=== PATIENT | female | born 1935 | race Caucasian/White ===

== ENCOUNTER 2017-01-02 14:28 | Inpatient (IN) | payer OTHER, MEDICARE ==
[~2017-01-02] VITALS: Ht 157.5 cm; Wt 46.3 kg
[2017-01-02 14:37] VITALS: BP_SYST 150
[2017-01-02] MEDS ORDERED: NACL 0.9% 1,000 ML IV ONE ×2 (15:00→17:00)
[2017-01-02] MEDS ORDERED: METO25TA3 PO (15:11)
[2017-01-02] MEDS ORDERED: PRO2.5 PO (15:11)
[2017-01-02] MEDS ORDERED: ESTR0.623 PO (15:11)
[2017-01-02] MEDS ORDERED: ROSU10TA PO (15:11)
[2017-01-02 15:13] LABS: BASOPHILS # (AUTO) 0.1 K/uL (0.0-0.2); BASOPHILS % (AUTO) 1.2 % (0.0-2.0); EOSINOPHILS # (AUTO) 0.2 K/uL (0.0-0.4); EOSINOPHILS % (AUTO) 1.8 % (0.0-4.0); HEMATOCRIT 41.3 % (36-48); HEMOGLOBIN 13.3 g/dL (12.0-16.0); LYMPHOCYTES # (AUTO) 3.4 K/uL (1.0-5.5); LYMPHOCYTES % (AUTO) 37.8 % (20.5-51.5); MEAN CORPUSCULAR HEMOGLOBIN 31 pg (27-31); MEAN CORPUSCULAR HGB CONC 32 % (32-36); MEAN CORPUSCULAR VOLUME 95 fL (79.0-98.0); MONOCYTES % (AUTO) 11.1 % (1.7-9.3); NEUTROPHILS # (AUTO) 4.2 K/uL (1.8-7.7); NEUTROPHILS % (AUTO) 48.1 % (40.0-70.0); PLATELET COUNT (AUTO) 387 K/uL (130-430); RED BLOOD CELL COUNT(AUTO) 4.36 MIL/uL (4.2-6.2); RED CELL DISTRIBUTION WIDTH 12.1 % (9.0-15.0); WHITE BLOOD COUNT (AUTO) 8.9 K/uL (4.8-10.8)
[2017-01-02 15:27] LABS: ANION GAP 8 (5-15); CALCIUM 9.8 mg/dL (8.4-11.0); CHLORIDE 106 mmol/L (98-107); CREATININE 1.02 mg/dL (0.55-1.30); GLUCOSE 104 mg/dL (70-99); POTASSIUM 4.4 mmol/L (3.5-5.1); SODIUM SERUM 138 mmol/L (136-145); UREA NITROGEN, BLOOD 14 mg/dL (8-21)
[2017-01-02 15:43] LABS: ALANINE AMINOTRANSFERASE 27 U/L (12-78); ALBUMIN 3.3 g/dL (3.4-4.8); ASPARTATE AMINOTRANSFERASE 24 U/L (10-37); TOTAL BILIRUBIN 0.4 mg/dL (0.0-1.0)
[2017-01-02 16:08] LABS: BILIRUBIN,URINE NEGATIVE (NEGATIVE); CLARITY/URINE CLEAR (CLEAR); COLOR,URINE YELLOW (YELLOW); GLUCOSE,URINE NEGATIVE (NEGATIVE); KETONES,URINE NEGATIVE (NEGATIVE); LEUKOCYTE ESTERASE ,URINE 1+ (NEGATIVE); NITRITE, URINE NEGATIVE (NEGATIVE); PH,URINE 6.5 (5.0-8.0); PROTEIN URINE NEGATIVE (NEGATIVE); UROBILINOGEN,URINE 0.2 (0.2-1.0)
[2017-01-02 16:14] LABS: BLOOD, URINE TRACE (NEGATIVE)
[2017-01-02 16:28] LABS: BACTERIA,URINE MODERATE /HPF (None Seen)
[2017-01-02 16:29] LABS: HYALINE CASTS, URINE 0-1 /LPF (None Seen)
[2017-01-02 16:30] LABS: MUCUS,URINE 1+ /LPF (None Seen)
[2017-01-02] MEDS ORDERED: cefTRIAXone 1 GM VIAL ONE (16:58)
[2017-01-02] MEDS ORDERED: metroNIDAZOLE 500 MG TABLET PO ONE (17:00)
[2017-01-02] MEDS ORDERED: cefTRIAXone 1 GM in D5W 50 ML IV ONE (17:00)
[2017-01-02] MEDS: NACL 0.9% 1,000 ML IV SCH (17:03)
[2017-01-02] MEDS ORDERED: MORPHINE 2 MG/ML INJ. SYRINGE IVP PRN (17:15)
[2017-01-02] MEDS ORDERED: SIMETHICONE 80 MG TAB.CHEW PO PRN (17:15)
[2017-01-02] MEDS ORDERED: ZOLPIDEM TARTRATE 5 MG TABLET PO PRN (17:15)
[2017-01-02] MEDS ORDERED: POTASSIUM CHLORIDE 20 MEQ TAB.PRT.SR PO PRN (17:15)
[2017-01-02] MEDS ORDERED: ONDANSETRON HCL 4 MG/2 ML VIAL IVP PRN (17:15)
[2017-01-02] MEDS ORDERED: ACETAMINOPHEN 325 MG TABLET PO PRN (17:15)
[2017-01-02] MEDS ORDERED: BISACODYL 10 MG/SUPPOSITORY RC PRN (17:15)
[2017-01-02] MEDS ORDERED: LORazepam 2 MG/ML VIAL IVP PRN (17:15)
[2017-01-02 17:43] VITALS: BP_SYST 140
[2017-01-02 18:19] LABS: FREE T4 (FREE THYROXINE) 0.8 ng/dL (0.6-1.6); PHOSPHORUS 5.6 mg/dL (2.7-4.5); THYROID STIMULATING HORMONE 2.32 uIu/mL (0.34-4.82)
[2017-01-02 19:00] VITALS: BP_SYST 119
[2017-01-02 20:00] VITALS: BP_SYST 119
[2017-01-02] MEDS: DOCUSATE SODIUM 100 MG CAPSULE PO SCH (21:00)
[2017-01-02] MEDS ORDERED: SACCHAROMYCES BOULARDII 250 MG CAPSULE (FLORASTOR) PO SCH (21:00)
[2017-01-02] MEDS: metroNIDAZOLE 500 MG TABLET PO SCH (21:39)
[2017-01-02 23:51] VITALS: BP_SYST 122
[2017-01-03 03:58] VITALS: BP_SYST 104
[2017-01-03] MEDS: NACL 0.9% 1,000 ML IV SCH ×2 (05:43→20:50)
[2017-01-03 06:44] LABS: CHOLESTEROL 128 mg/dL (<200); HDL CHOLESTEROL 55 mg/dL (>55); LDL CHOLESTEROL 73 mg/dL (<100); TRIGLYCERIDES 71 mg/dL (30-150)
[2017-01-03 08:14] VITALS: BP_SYST 113
[2017-01-03] MEDS: metroNIDAZOLE 500 MG TABLET PO SCH ×3 (08:49→20:52)
[2017-01-03] MEDS: MULTIVITS,CA,MINERALS/IRON/FA 1 TABLET PO SCH (08:50)
[2017-01-03] MEDS: LACTOBACILLUS RHAMNOSUS GG 1 CAP CAPSULE PO SCH ×2 (08:50→20:50)
[2017-01-03] MEDS: DOCUSATE SODIUM 100 MG CAPSULE PO SCH ×2 (08:51→20:52)
[2017-01-03] MEDS ORDERED: cefTRIAXone 1 GM in D5W 50 ML IV SCH (09:00)
[2017-01-03 11:36] VITALS: BP_SYST 109
[2017-01-03] MEDS ORDERED: cefTRIAXone 1 GM in D5W 50 ML IV ONE (14:00)
[2017-01-03 15:42] VITALS: BP_SYST 108
[2017-01-03 20:00] VITALS: BP_SYST 116
[2017-01-04 00:23] VITALS: BP_SYST 139
[2017-01-04 06:02] VITALS: BP_SYST 126
[2017-01-04 06:26] LABS: BASOPHILS # (AUTO) 0.1 K/uL (0.0-0.2); EOSINOPHILS # (AUTO) 0.3 K/uL (0.0-0.4); EOSINOPHILS % (AUTO) 3.9 % (0.0-4.0); LYMPHOCYTES # (AUTO) 2.4 K/uL (1.0-5.5); MEAN CORPUSCULAR HEMOGLOBIN 32 pg (27-31); MEAN CORPUSCULAR HGB CONC 34 % (32-36); MEAN CORPUSCULAR VOLUME 94 fL (79.0-98.0); MONOCYTES # (AUTO) 0.8 K/uL (0.0-1.0); MONOCYTES % (AUTO) 9.9 % (1.7-9.3); NEUTROPHILS # (AUTO) 4.3 K/uL (1.8-7.7); NEUTROPHILS % (AUTO) 55.2 % (40.0-70.0); PLATELET COUNT (AUTO) 300 K/uL (130-430); RED BLOOD CELL COUNT(AUTO) 3.81 MIL/uL (4.2-6.2); RED CELL DISTRIBUTION WIDTH 12.4 % (9.0-15.0); WHITE BLOOD COUNT (AUTO) 7.9 K/uL (4.8-10.8)
[2017-01-04 06:50] LABS: ANION GAP 8 (5-15); CALCIUM 8.5 mg/dL (8.4-11.0); CHLORIDE 109 mmol/L (98-107); CREATININE 0.83 mg/dL (0.55-1.30); GLUCOSE 98 mg/dL (70-99); PHOSPHORUS 3.8 mg/dL (2.7-4.5); POTASSIUM 3.5 mmol/L (3.5-5.1); SODIUM SERUM 140 mmol/L (136-145); UREA NITROGEN, BLOOD 12 mg/dL (8-21)
[2017-01-04 08:16] LABS: T4 (THYROXINE) 8.8 ug/dL (4.5-12.0)
[2017-01-04] MEDS: DOCUSATE SODIUM 100 MG CAPSULE PO SCH ×3 (09:00→20:30)
[2017-01-04 09:22] VITALS: BP_SYST 131
[2017-01-04] MEDS ORDERED: LORazepam 2 MG/ML VIAL IVP PRN (09:45)
[2017-01-04] MEDS ORDERED: HEPARIN SODIUM,PORCINE 5000 UNITS/ML VIAL SUBCUT ONE (09:45)
[2017-01-04] MEDS ORDERED: POTASSIUM CHLORIDE 10 MEQ TAB.PRT.SR PO PRN (09:45)
[2017-01-04] MEDS ORDERED: MAGNESIUM SULFATE 50 ML IV PRN (09:45)
[2017-01-04] MEDS ORDERED: ACETAMINOPHEN 325 MG TABLET PO PRN (09:45)
[2017-01-04] MEDS ORDERED: MORPHINE 2 MG/ML INJ. SYRINGE IVP PRN ×2 (09:45)
[2017-01-04] MEDS ORDERED: ZOLPIDEM TARTRATE 5 MG TABLET PO PRN (09:45)
[2017-01-04] MEDS ORDERED: DOCUSATE SODIUM 100 MG CAPSULE PO PRN (09:45)
[2017-01-04] MEDS ORDERED: ONDANSETRON HCL 4 MG/2 ML VIAL IVP PRN (09:45)
[2017-01-04 10:00] LABS: HEMOGLOBIN A1C 5.7 % (4.8-5.6)
[2017-01-04] MEDS: METOPROLOL SUCCINATE 25 MG TAB.SR.24H (TOPROL XL) PO SCH (10:21)
[2017-01-04] MEDS: LACTOBACILLUS RHAMNOSUS GG 1 CAP CAPSULE PO SCH ×2 (10:21→20:25)
[2017-01-04] MEDS: MULTIVITS,CA,MINERALS/IRON/FA 1 TABLET PO SCH (10:21)
[2017-01-04] MEDS: ESTROGENS,CONJUGATED 0.625 MG TABLET PO SCH (10:23)
[2017-01-04 11:31] VITALS: BP_SYST 138
[2017-01-04] MEDS: cefTRIAXone 1 GM in D5W 50 ML IV SCH (12:41)
[2017-01-04] MEDS: VANCOMYCIN HCL 125 MG CAPSULE PO SCH ×2 (12:55→17:47)
[2017-01-04 15:26] VITALS: BP_SYST 140
[2017-01-04 20:21] VITALS: BP_SYST 137
[2017-01-04] MEDS: NACL 0.9% 1,000 ML IV SCH (20:25)
[2017-01-04] MEDS: HEPARIN SODIUM,PORCINE 5000 UNITS/ML VIAL SUBCUT SCH (20:28)
[2017-01-05] MEDS: VANCOMYCIN HCL 125 MG CAPSULE PO SCH ×3 (00:14→12:10)
[2017-01-05 01:05] VITALS: BP_SYST 144
[2017-01-05 03:32] VITALS: BP_SYST 141
[2017-01-05 06:28] LABS: ANION GAP 7 (5-15); CALCIUM 8.7 mg/dL (8.4-11.0); CHLORIDE 107 mmol/L (98-107); CREATININE 0.77 mg/dL (0.55-1.30); GLUCOSE 106 mg/dL (70-99); POTASSIUM 3.4 mmol/L (3.5-5.1); SODIUM SERUM 139 mmol/L (136-145); UREA NITROGEN, BLOOD 10 mg/dL (8-21)
[2017-01-05 06:31] LABS: BASOPHILS # (AUTO) 0.1 K/uL (0.0-0.2); EOSINOPHILS # (AUTO) 0.3 K/uL (0.0-0.4); EOSINOPHILS % (AUTO) 3.8 % (0.0-4.0); HEMATOCRIT 39.1 % (36-48); LYMPHOCYTES # (AUTO) 2.8 K/uL (1.0-5.5); LYMPHOCYTES % (AUTO) 34.2 % (20.5-51.5); MEAN CORPUSCULAR HEMOGLOBIN 32 pg (27-31); MEAN CORPUSCULAR HGB CONC 33 % (32-36); MEAN CORPUSCULAR VOLUME 95 fL (79.0-98.0); MONOCYTES # (AUTO) 0.7 K/uL (0.0-1.0); NEUTROPHILS # (AUTO) 4.3 K/uL (1.8-7.7); PLATELET COUNT (AUTO) 324 K/uL (130-430); RED CELL DISTRIBUTION WIDTH 12.7 % (9.0-15.0); WHITE BLOOD COUNT (AUTO) 8.2 K/uL (4.8-10.8)
[2017-01-05 08:34] VITALS: BP_SYST 152
[2017-01-05] MEDS: DOCUSATE SODIUM 100 MG CAPSULE PO SCH (09:00)
[2017-01-05] MEDS: cefTRIAXone 1 GM in D5W 50 ML IV SCH (09:29)
[2017-01-05] MEDS: LACTOBACILLUS RHAMNOSUS GG 1 CAP CAPSULE PO SCH (10:11)
[2017-01-05] MEDS: MULTIVITS,CA,MINERALS/IRON/FA 1 TABLET PO SCH (10:11)
[2017-01-05] MEDS: METOPROLOL SUCCINATE 25 MG TAB.SR.24H (TOPROL XL) PO SCH (10:11)
[2017-01-05] MEDS: ESTROGENS,CONJUGATED 0.625 MG TABLET PO SCH (10:11)
[2017-01-05] MEDS: HEPARIN SODIUM,PORCINE 5000 UNITS/ML VIAL SUBCUT SCH (10:13)
[2017-01-05 11:26] VITALS: BP_SYST 160
[2017-01-05] MEDS: NACL 0.9% 1,000 ML IV SCH (11:43)
[2017-01-05 12:44] VITALS: BP_SYST 150
[2017-01-05 15:36] VITALS: BP_SYST 150
== END 2017-01-05 16:11 | DRG 372 ==
LOC: SED 14:28 → STU 17:03 → SMU 01-03 13:12
PROVIDERS: ADMIT Family Medicine; ATTEND Family Medicine
DX: A04.72 Enterocolitis due to Clostridium difficile, not specified as recurrent (principal); N39.0 Urinary tract infection, site not specified; E44.0 Moderate protein-calorie malnutrition; E86.0 Dehydration; E78.5 Hyperlipidemia, unspecified; I10 Essential (primary) hypertension; R26.81 Unsteadiness on feet; Z79.899 Other long term (current) drug therapy
CPT/HCPCS: 36415; 80048; 80053; 80061; 81000-TC; 82150-TC; 83036; 83605; 83690-TC; 83735-TC; 83880; 84100-TC; 84436; 84439; 84443-TC; 84479; 84484; 85025; 87040-TC; 87086; 87230-TC; 93005; 96361; 96365; 99285; J0696; J1644; J2405; J7030; J7060